=== PATIENT | female | born 1990 | race Caucasian/White ===

== ENCOUNTER 2021-07-21 14:12 | Emergency (ER) | payer OTHER ==
[~2021-07-21] VITALS: Ht 167.6 cm; Wt 76.4 kg
[2021-07-21 14:13] VITALS: BP 140/78
== END 2021-07-21 15:45 | disposition home or self-care (01) ==
LOC: M ED 14:12
DX: R06.00 Dyspnea, unspecified (principal); F17.200 Nicotine dependence, unspecified, uncomplicated